=== PATIENT | male | born 1950 | race Caucasian/White ===

== ENCOUNTER 2017-09-04 10:15 | Inpatient (IN) | payer OTHER, MEDICARE ==
--- NOTE | 2017-09-04 10:35 | ER Document Report ---
ED Medical Screen (RME) - General Chief Complaint: Nausea/Vomiting/Diarrhea Stated Complaint: VOMITING Time Seen by Provider: 09/04/17 10:28 Notes: RAPID MEDICAL EVALUATION DISCLOSURE I have seen this patient as part of a Rapid Medical Evaluation and, if applicable, placed any initially appropriate orders. The patient will be seen and fully evaluated, including a full history and physical exam, by a provider ( in Main ED or Fast Track) when a room becomes available. 66-year-old male here with complaints of nausea vomiting diarrhea ongoing for days now. He is also had some epigastric abdominal pain. He has tried Tylenol for the pain with minimal relief. He does not know of anything that makes the pain worse other than vomiting. He denies any known sick contacts. He was given 4 mg Zofran by EMS. There was talk of altered mental status so he was sent here by the ID clinic. EXAM Mild epigastric TTP AO 4 TRAVEL OUTSIDE OF THE [place] IN LAST 30 DAYS: No - Related Data Allergies/Adverse Reactions: No Known Allergies Allergy (Unverified 09/04/17 10:17) Physical Exam - Vital signs Vitals: Temp Pulse Resp BP Pulse Ox 98.0 F 86 16 158/97 H 95 09/04/17 10:24 09/04/17 10:24 09/04/17 10:24 09/04/17 10:24 09/04/17 10:24 Course - Vital Signs Vital signs: Temp Pulse Resp BP Pulse Ox 98.0 F 86 16 158/97 H 95 09/04/17 10:24 09/04/17 10:24 09/04/17 10:24 09/04/17 10:24 09/04/17 10:24
[2017-09-04 10:42] LABS: ABSOLUTE EOSINOPHILS # (AUTO) 0.1 10^3/uL (0.0-0.6); ABSOLUTE LYMPHOCYTES (AUTO) 0.5 10^3/uL (0.5-4.7); ABSOLUTE MONOCYTES (AUTO) 0.3 10^3/uL (0.1-1.4); ABSOLUTE NEUT (AUTO) 2.1 10^3/uL (1.7-8.2); BASOPHILS % (AUTO) 0.6 % (0-2); HEMATOCRIT 43.3 % (37.9-51.0); HEMOGLOBIN 14.8 g/dL (13.5-17.0); LYMPHOCYTES % (AUTO) 16.3 % (13-45); MEAN CORPUSCULAR HEMOGLOBIN 32.6 pg (27.0-33.4); MEAN CORPUSCULAR HGB CONC 34.2 g/dL (32.0-36.0); MEAN CORPUSCULAR VOLUME 95 fl (80-97); MONOCYTES % (AUTO) 8.8 % (3-13); PLATELET COUNT 312 10^3/uL (150-450); RED BLOOD COUNT 4.54 10^6/uL (4.35-5.55); RED CELL DISTRIBUTION WIDTH 12.9 % (11.5-14.0); SEGMENTED NEUTROPHILS % (AUTO) 72.3 % (42-78); TOTAL CELLS COUNTED % (AUTO) 100 %; WHITE BLOOD COUNT 2.9 10^3/uL (4.0-10.5)
[2017-09-04 10:55] LABS: ALANINE AMINOTRANSFERASE 30 U/L (21-72); ALKALINE PHOSPHATASE 95 U/L (38-126); ASPARTATE AMINO TRANSFERASE 32 U/L (17-59); BILIRUBIN,DIRECT 0.4 mg/dL (0.0-0.4); BILIRUBIN,TOTAL 0.7 mg/dL (0.2-1.3); BLOOD UREA NITROGEN 13 mg/dL (7-20); CALCIUM 8.8 mg/dL (8.4-10.2); CARBON DIOXIDE 26 mmol/L (22-30); CHLORIDE 80 mmol/L (98-107); GLUCOSE 94 mg/dL (75-110); LIPASE 146.8 U/L (23-300); POTASSIUM 4.1 mmol/L (3.6-5.0); TOTAL PROTEIN 6.6 g/dL (6.3-8.2)
[2017-09-04 10:58] LABS: ANION GAP 12 (5-19)
[2017-09-04 11:05] LABS: SODIUM 117.8 mmol/L (137-145)
[2017-09-04] MEDS ORDERED: NORMAL SALINE 500 ML IV ONE (11:28)
[2017-09-04] MEDS ORDERED: NORMAL SALINE 1000 ML 1,000 ML IV ONE (11:30)
[2017-09-04] MEDS ORDERED: ONDANSETRON HCL INJ/PF 4 MG/2 ML SDV IV ONE (11:41)
[2017-09-04] MEDS ORDERED: MORPHINE SULFATE 10 MG/ML INJ IV ONE (11:41)
[2017-09-04] MEDS ORDERED: METOCLOPRAMIDE HCL INJ/PF 10 MG/2 ML SDV IV ONE (11:43)
--- NOTE | 2017-09-04 11:48 | ER Document Report ---
ED General - General Chief Complaint: Nausea/Vomiting/Diarrhea Stated Complaint: VOMITING Time Seen by Provider: 09/04/17 10:28 Mode of Arrival: Ambulatory Information source: Patient, Relative, Emergency Med Personnel Notes: 66-year-old male with hypertension, COPD, aspergillosis, gastric ulcers presents via EMS with complaint of nausea, vomiting, abdominal pain. is at the bedside and helps provide the history because the patient does not have his hearing aids in. states that patient began coughing 1 week prior to arrival. She states that it was a productive cough, they were going to be seen by his primary care physician but the cough improved. She states that patient has been experiencing subjective fevers for the last 3 days and began having nausea, vomiting last night. Both patient and reports that the patient vomited "all night long". Patient had 2 episodes of diarrhea this morning. Patient's abdominal pain is located in epigastric region described as a stabbing pain. Patient admits to abdominal distention as well. He denies any bloody stools. he states he has black stools chronically secondary to iron supplementation. Patient denies sick contacts. Patient is on amoxicillin chronically for his aspergillosis per the . states that Patient's gastric ulcers were "bleeding" and required "ablation" last year. TRAVEL OUTSIDE OF THE [place] IN LAST 30 DAYS: No - HPI Onset: Yesterday Onset/Duration: Gradual, Constant, Worse Quality of pain: Stabbing Severity: Moderate Pain Level: 3 Associated symptoms: Chills, Productive cough, Diarrhea, Fever, Nausea, Vomiting , Slow to respond, Sweating, Weakness Exacerbated by: Denies Relieved by: Denies Similar symptoms previously: No Recently seen / treated by doctor: Yes - Related Data Allergies/Adverse Reactions: No Known Allergies Allergy (Unverified 09/04/17 10:17) Home Medications: Hydroxyzine 50mg at bedtime PRN. Trazodone 50mg 1 tab PRN for depression. Gabapentin 400mg TID PO. Melatonin 3mg tap TID PO. Ferrous Sulfate 325mg PO Daily. Budesonide 80mg 2 puffs BID PRN. Diltiazem PO Daily. Fluoxetine HCl 20mg 3 capsults Daily. Folic Acid 1mg tab PO daily. HCTZ 1 tab daily. Thiamine HCl 100mg daily PO. Albuterol 90mcg 1 puff daily. Pantoprazole 20mg 1 tab BID Daily. Montelukast NA 10 mg 1 tab PO Daily. Calcium 1 tab BID Daily Past Medical History - General Information source: Patient, Parent, [facility] Records - Social History Smoking Status: Never Smoker Chew tobacco use (# tins/day): No Frequency of alcohol use: None Drug Abuse: None Lives with: Spouse/Significant other Family History: Reviewed & Not Pertinent Patient has suicidal ideation: No Patient has homicidal ideation: No - Past Medical History Cardiac Medical History: Reports: Hx Hypertension Pulmonary Medical History: Reports: Hx Asthma, Hx COPD Renal/ Medical History: Denies: Hx Peritoneal Dialysis Psychiatric Medical History: Reports: Hx Depression Past Surgical History: Reports: Hx Orthopedic Surgery - Hip Review of Systems - Review of Systems Constitutional: Fever, Weakness EENT: denies: Blurred vision Cardiovascular: denies: Chest pain Respiratory: Cough, Short of breath Gastrointestinal: Abdominal pain, Diarrhea, Nausea. denies: Constipation, Blood streaked bowels, Black stools Genitourinary: denies: Dysuria Male Genitourinary: No symptoms reported Musculoskeletal: No symptoms reported Skin: No symptoms reported Hematologic/Lymphatic: No symptoms reported Neurological/Psychological: Confusion Physical Exam - Vital signs Vitals: Temp Pulse Resp BP Pulse Ox 98.0 F 86 16 158/97 H 95 09/04/17 10:24 09/04/17 10:24 09/04/17 10:24 09/04/17 10:24 09/04/17 10:24 Interpretation: Normal, Hypertensive. No: Febrile - Notes Notes: PHYSICAL EXAMINATION: GENERAL: ill-appearing, diaphoretic, in moderate distress. HEAD: Atraumatic, normocephalic. EYES: Pupils equal round and reactive to light, extraocular movements intact, sclera anicteric, conjunctiva are normal. ENT: Nares patent, oropharynx clear without exudates. Moist mucous membranes. NECK: Normal range of motion, supple without lymphadenopathy LUNGS: Breath sounds clear to auscultation bilaterally and equal. No wheezes rales or rhonchi. HEART: Regular rate and rhythm without murmurs ABDOMEN: Abdominal distention. Tender to palpation in the epigastric region. No guarding or rebound. Musculoskeletal: Normal range of motion, no pitting or edema. No cyanosis. NEUROLOGICAL: Tremulous, cranial nerves grossly intact. Normal speech, normal gait. Normal sensory, motor exams PSYCH: Normal mood, normal affect. Alert and oriented 3 SKIN: Warm, Dry, normal turgor, no rashes or lesions noted. Course - Re-evaluation Re-evalutation: Laboratory 09/04/17 09/04/17 09/04/17 09:55 09:55 09:55 WBC 2.9 L RBC 4.54 Hgb 14.8 Hct 43.3 MCV 95 MCH 32.6 MCHC 34.2 RDW 12.9 Plt Count 312 Seg Neutrophils % 72.3 Lymphocytes % 16.3 Monocytes % 8.8 Eosinophils % 2.0 Basophils % 0.6 Absolute Neutrophils 2.1 Absolute Lymphocytes 0.5 Absolute Monocytes 0.3 Absolute Eosinophils 0.1 Absolute Basophils 0.0 Sodium 117.8 L* Potassium 4.1 Chloride 80 L Carbon Dioxide 26 Anion Gap 12 BUN 13 Creatinine 0.55 Est GFR ( Amer) > 60 Est GFR (Non-Af Amer) > 60 Glucose 94 Lactic Acid Calcium 8.8 Total Bilirubin 0.7 Direct Bilirubin 0.4 Neonat Total Bilirubin Not Reportable Neonat Direct Bilirubin Not Reportable Neonat Indirect Bili Not Reportable AST 32 ALT 30 Alkaline Phosphatase 95 Creatine Kinase 150 CK-MB (CK-2) Troponin I Total Protein 6.6 Albumin 4.0 Lipase 146.8 Urine Color Urine Appearance Urine pH Ur Specific [place] Urine Protein Urine Glucose (UA) Urine Ketones Urine Blood Urine Nitrite Urine Bilirubin Urine Urobilinogen Ur Leukocyte Esterase Urine WBC (Auto) Urine RBC (Auto) Urine Mucus (Auto) Urine Ascorbic Acid Stool Occult Blood 09/04/17 09/04/17 09/04/17 09:55 11:42 13:17 WBC RBC Hgb Hct MCV MCH MCHC RDW Plt Count Seg Neutrophils % Lymphocytes % Monocytes % Eosinophils % Basophils % Absolute Neutrophils Absolute Lymphocytes Absolute Monocytes Absolute Eosinophils Absolute Basophils Sodium Potassium Chloride Carbon Dioxide Anion Gap BUN Creatinine Est GFR ( Amer) Est GFR (Non-Af Amer) Glucose Lactic Acid 0.9 Calcium Total Bilirubin Direct Bilirubin Neonat Total Bilirubin Neonat Direct Bilirubin Neonat Indirect Bili AST ALT Alkaline Phosphatase Creatine Kinase CK-MB (CK-2) 3.03 Troponin I < 0.012 Total Protein Albumin Lipase Urine Color YELLOW Urine Appearance CLEAR Urine pH 5.0 Ur Specific [place] 1.036 Urine Protein 30 H Urine Glucose (UA) NEGATIVE Urine Ketones 20 H Urine Blood NEGATIVE Urine Nitrite NEGATIVE Urine Bilirubin NEGATIVE Urine Urobilinogen NEGATIVE Ur Leukocyte Esterase NEGATIVE Urine WBC (Auto) 0 Urine RBC (Auto) 1 Urine Mucus (Auto) OCC Urine Ascorbic Acid NEGATIVE Stool Occult Blood 09/04/17 14:20 WBC RBC Hgb Hct MCV MCH MCHC RDW Plt Count Seg Neutrophils % Lymphocytes % Monocytes % Eosinophils % Basophils % Absolute Neutrophils Absolute Lymphocytes Absolute Monocytes Absolute Eosinophils Absolute Basophils Sodium Potassium Chloride Carbon Dioxide Anion Gap BUN Creatinine Est GFR ( Amer) Est GFR (Non-Af Amer) Glucose Lactic Acid Calcium Total Bilirubin Direct Bilirubin Neonat Total Bilirubin Neonat Direct Bilirubin Neonat Indirect Bili AST ALT Alkaline Phosphatase Creatine Kinase CK-MB (CK-2) Troponin I Total Protein Albumin Lipase Urine Color Urine Appearance Urine pH Ur Specific [place] Urine Protein Urine Glucose (UA) Urine Ketones Urine Blood Urine Nitrite Urine Bilirubin Urine Urobilinogen Ur Leukocyte Esterase Urine WBC (Auto) Urine RBC (Auto) Urine Mucus (Auto) Urine Ascorbic Acid Stool Occult Blood NEGATIVE Chest X-Ray 09/04/17 12:53 IMPRESSION: No acute infiltrates Abdomen/Pelvis CTA 09/04/17 13:47 IMPRESSION: Minimal patchy airspace disease bilaterally, question pulmonary edema. Gastroesophageal reflux of oral contrast of the cervical esophagus No CTA evidence of thoracic or abdominal aortic dissection or aneurysm. No embolized to the proximal pulmonary arteries. Chest/Abdomen CTA 09/04/17 13:47 IMPRESSION: Minimal patchy airspace disease bilaterally, question pulmonary edema. Gastroesophageal reflux of oral contrast of the cervical esophagus No CTA evidence of thoracic or abdominal aortic dissection or aneurysm. No embolized to the proximal pulmonary arteries. 09/04/17 15:44 66-year-old male with hypertension, COPD, aspergillosis, gastric ulcers presents via EMS with complaint of nausea, vomiting, abdominal pain. is at the bedside and helps provide the history because the patient does not have his hearing aids in. states that patient began coughing 1 week prior to arrival. She states that it was a productive cough, they were going to be seen by his primary care physician but the cough improved. She states that patient has been experiencing subjective fevers for the last 3 days and began having nausea, vomiting last night. Both patient and reports that the patient vomited "all night long". Patient had 2 episodes of diarrhea this morning. Patient's abdominal pain is located in epigastric region described as a stabbing pain. Patient admits to abdominal distention as well. He denies any bloody stools. reports black stools chronically secondary to iron supplements. Upon arrival vitals are reviewed and patient is afebrile, hypertensive but not hypoxic. Patient appears ill but not toxic. He is in mild distress secondary to pain. Patient received Dilaudid, Zofran. During his ED course patient began to complain of worsening shortness of breath. At that time breathing treatments were administered. O2 sats remeined stable. Patient was never tachycardic. On reevaluation patient is sitting up, diaphoretic and complaining of worsening abdominal pain. At that time CTA of the chest abdomen and pelvis were obtained to assess for aortic dissection. No aortic dissection was seen. Significant laboratory findings include a sodium of 117. Patient has a normal lactate, normal cardiac enzymes and urinalysis. Stool negative for blood. After second dose of Dilaudid patient is resting more comfortably. Patient is receiving normal saline at a rate of 150. Repeat BMP pending. Patient will be admitted to the hospitalist. 09/04/17 15:45 09/04/17 21:50 - Vital Signs Vital signs: Temp Pulse Resp BP Pulse Ox 98.0 F 83 16 144/67 H 98 09/04/17 20:17 09/04/17 20:17 09/04/17 20:17 09/04/17 20:17 09/04/17 20:17 - Laboratory Result Diagrams: 09/04/17 09:55 09/04/17 13:40 Laboratory results interpreted by me: 09/04/17 09/04/17 09/04/17 09:55 09:55 13:17 WBC 2.9 L Sodium 117.8 L* Chloride 80 L Urine Protein 30 H Urine Ketones 20 H 09/04/17 13:40 WBC Sodium 119.0 L* Chloride 83 L Urine Protein Urine Ketones - Diagnostic Test Radiology reviewed: Image reviewed, Reports reviewed - EKG Interpretation by Ri EKG shows normal: Sinus rhythm [place]/QRS: [facility] Critical Care Note - Critical Care Note Total time excluding time spent on procedures (mins): 35 - minutes of critical care time spent in direct contact evaluating and reevaluating the patient, treating symptoms, reviewing labs and studies and speaking with family and consultants excluding any procedures Discharge - Discharge Clinical Impression: Hyponatremia, Confusion Abdominal pain Qualifiers: Abdominal location: epigastric Qualified Code(s): R10.13 - Epigastric pain Nausea & vomiting Qualifiers: Vomiting type: unspecified Vomiting Intractability: non-intractable Qualified Code(s): R11.2 - Nausea with vomiting, unspecified Condition: Good Disposition: ADMITTED INPATIENT Admitting Provider: Hospitalist Unit Admitted: Telemetry
[2017-09-04] MEDS ORDERED: HYDROMORPHONE HCL INJ/PF 2 MG/ML AMPULE IV ONE ×2 (11:55→14:23)
[2017-09-04] MEDS ORDERED: IPRATROPIUM/ALBUTEROL 0.5-2.5 MG/3 ML AMPUL NEB ONE (12:17)
[2017-09-04 12:21] LABS: CREATINE KINASE MB 3.03 ng/mL (<4.55)
[2017-09-04 12:23] LABS: TROPONIN I < 0.012 ng/mL
--- NOTE | 2017-09-04 12:47 | EKG REPORT ---
SEVERITY:- ABNORMAL ECG - SINUS RHYTHM PROBABLE LEFT ATRIAL ABNORMALITY LEFT ANTERIOR FASCICULAR BLOCK CONSIDER RIGHT VENTRICULAR HYPERTROPHY NONSPECIFIC T ABNORMALITIES, LATERAL LEADS PROLONGED QT INTERVAL : Confirmed by: Odin Monreal MD 04-Sep-2017 12:47:14
--- NOTE | 2017-09-04 13:28 | RADIOLOGY REPORT (SQ) ---
EXAM DESCRIPTION: CHEST SINGLE VIEW COMPLETED DATE/TIME: 09/04/2017 1:16 pm REASON FOR STUDY: sob COMPARISON: None. EXAM PARAMETERS: NUMBER OF VIEWS: One view. TECHNIQUE: Single frontal radiographic view of the chest acquired. RADIATION DOSE: NA LIMITATIONS: None. FINDINGS: LUNGS AND PLEURA: No opacities, masses or pneumothorax. No pleural effusion. MEDIASTINUM AND HILAR STRUCTURES: No masses. Contour normal. HEART AND VASCULAR STRUCTURES: Heart normal in size. Normal vasculature. BONES: Osteoporotic. Old right humeral head prosthesis. Old left healed lateral rib fractures. Low er thoracic/ upper lumbar stabilization rods HARDWARE: Orthopedic hardware as above OTHER: No other significant finding. IMPRESSION: No acute infiltrates TECHNICAL DOCUMENTATION: JOB ID: [id number] [employer]- All Rights Reserved Reading location - IP/workstation name: [email or web address]
[2017-09-04] MEDS ORDERED: HYDROMORPHONE HCL INJ/PF 2 MG/ML AMPULE ONE (13:43)
[2017-09-04 14:04] LABS: APPEARANCE,URINE CLEAR; BILIRUBIN,URINE NEGATIVE (NEGATIVE); COLOR,URINE YELLOW; GLUCOSE, URINE NEGATIVE (NEGATIVE); KETONES,URINE 20 mg/dL (NEGATIVE); LEUKOCYTE ESTERASE,URINE NEGATIVE (NEGATIVE); NITRITE,URINE NEGATIVE (NEGATIVE); PROTEIN,URINE 30 mg/dL (NEGATIVE); URINE SPECIFIC GRAVITY 1.036; UROBILINOGEN,URINE NEGATIVE mg/dL (<2.0)
--- NOTE | 2017-09-04 14:39 | RADIOLOGY REPORT (SQ) ---
EXAM DESCRIPTION: CTA CHEST; CTA ABDOMEN/PELVIS W WO COMPLETED DATE/TIME: 09/04/2017 2:04 pm REASON FOR STUDY: sob COMPARISON: None. CONTRAST TYPE AND DOSE: contrast/concentration: Isovue 370.00 mg/ml; Total Contrast Delivered: 75.0 ml; Total Saline Delivered: 60.0 ml RENAL FUNCTION: Creatinine 0.5 by TECHNIQUE: CT angio of the chest performed using helical scanning technique with dynamic intravenous contrast injection. Images reviewed with lung, soft tissue and bone windows. Reconstructed coronal and sagittal MPR images through the thoracic aorta and pulmonary arteries reviewed. All images store d on PACS. CT angio of the abdomen and pelvis performed with intravenous and with oral contrastusing helical sca nning technique with dynamic intravenous contrast injection. Images reviewed with lung, soft tissue and bone windows. Reconstructed coronal and sagittal MPR images reviewed. Delayed images for evalua tion of the urinary system also acquired and evaluated. All images stored on PACS. All CT scanners at this facility use dose modulation, iterative reconstruction, and/or weight based d osing when appropriate to reduce radiation dose to as low as reasonably achievable (ALARA). [facility]: Dose Right [facility]: CareDose [facility]: Dose Right [facility]: Teradose 4D [facility]: Smart redealize RADIATION DOSE: CT Rad equipment meets quality standard of care and radiation dose reduction techniq ues were employed. CTDIvol: 13.3 - 19.8 mGy. DLP: 1865 mGy-cm. . LIMITATIONS: None. FINDINGS: CHEST: LUNGS AND PLEURA: There is minimal patchy ground-glass opacity in the right upper lobe left upper lob e and superior segment left lower lobe. This is abnormal but nonspecific and could represent mild pu lmonary edema. No pleural effusions. No pneumothorax. Minimal bandlike scarring at the right poste rior lung base. HILAR AND MEDIASTINAL STRUCTURES: No identified masses or abnormal nodes. HEART AND VASCULAR STRUCTURES: No thoracic aortic aneurysm or dissection. No central pulmonary embol i. No pericardial effusion. Minimal aortic valve calcification. HARDWARE: None. THYROID AND OTHER SOFT TISSUES: No masses. No adenopathy. 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 T7 chronic appearing 50% compression deformity. OTHER: There is reflux of oral contrast from the stomach up through the cervical esophagus. ABDOMEN AND PELVIS: LIVER: Normal size. No masses. No dilated ducts. SPLEEN: Normal size. No focal lesions. PANCREAS: No masses. No significant calcifications. No adjacent inflammation or peripancreatic fluid collections. Pancreatic duct not dilated. GALLBLADDER: No identified stones by CT criteria. No inflammatory changes to suggest cholecystitis. ADRENAL GLANDS: No significant masses or asymmetry. RIGHT KIDNEY AND URETER: No solid masses. No significant calcification. No hydronephrosis or hydroure ter. LEFT KIDNEY AND URETER: No solid masses. 2 cm right upper pole renal cortical cyst. No significant calcification. No hydronephrosis or hydroureter. AORTA AND VESSELS: No aneurysm. No dissection. Renal arteries, SMA, celiac without stenosis. RETROPERITONEUM: No retroperitoneal adenopathy, hemorrhage or masses. BOWEL AND PERITONEAL CAVITY: Patient drank oral contrast. No CT evidence of bowel obstruction. Ther e is gastroesophageal reflux to the cervical esophagus. No masses or inflammatory changes. No free f luid or peritoneal masses. APPENDIX: Normal. ABDOMINAL WALL: No masses. No hernias. PELVIS: No mass or free fluid. Normal bladder. BONES: Old right hip replacement. Jurado rods in the spine from T9 through the sacrum. OTHER: No other significant finding. IMPRESSION: Minimal patchy airspace disease bilaterally, question pulmonary edema. Gastroesophageal reflux of oral contrast of the cervical esophagus No CTA evidence of thoracic or abdominal aortic dissection or aneurysm. No embolized to the proximal pulmonary arteries. TECHNICAL DOCUMENTATION: JOB ID: [id number] Quality ID # [id number]: Final reports with documentation of one or more dose reduction techniques (e.g., Au tomated exposure control, adjustment of the mA and/or kV according to patient size, use of iterative reconstruction technique) 2010 [employer]- All Rights Reserved Reading location - IP/workstation name: [email or web address]
--- NOTE | 2017-09-04 14:39 | RADIOLOGY REPORT (SQ) ---
EXAM DESCRIPTION: CTA CHEST; CTA ABDOMEN/PELVIS W WO COMPLETED DATE/TIME: 09/04/2017 2:04 pm REASON FOR STUDY: sob COMPARISON: None. CONTRAST TYPE AND DOSE: contrast/concentration: Isovue 370.00 mg/ml; Total Contrast Delivered: 75.0 ml; Total Saline Delivered: 60.0 ml RENAL FUNCTION: Creatinine 0.5 by TECHNIQUE: CT angio of the chest performed using helical scanning technique with dynamic intravenous contrast injection. Images reviewed with lung, soft tissue and bone windows. Reconstructed coronal and sagittal MPR images through the thoracic aorta and pulmonary arteries reviewed. All images store d on PACS. CT angio of the abdomen and pelvis performed with intravenous and with oral contrastusing helical sca nning technique with dynamic intravenous contrast injection. Images reviewed with lung, soft tissue and bone windows. Reconstructed coronal and sagittal MPR images reviewed. Delayed images for evalua tion of the urinary system also acquired and evaluated. All images stored on PACS. All CT scanners at this facility use dose modulation, iterative reconstruction, and/or weight based d osing when appropriate to reduce radiation dose to as low as reasonably achievable (ALARA). [facility]: Dose Right [facility]: CareDose [facility]: Dose Right [facility]: Teradose 4D [facility]: Smart E[place] RADIATION DOSE: CT Rad equipment meets quality standard of care and radiation dose reduction techniq ues were employed. CTDIvol: 13.3 - 19.8 mGy. DLP: 1865 mGy-cm. . LIMITATIONS: None. FINDINGS: CHEST: LUNGS AND PLEURA: There is minimal patchy ground-glass opacity in the right upper lobe left upper lob e and superior segment left lower lobe. This is abnormal but nonspecific and could represent mild pu lmonary edema. No pleural effusions. No pneumothorax. Minimal bandlike scarring at the right poste rior lung base. HILAR AND MEDIASTINAL STRUCTURES: No identified masses or abnormal nodes. HEART AND VASCULAR STRUCTURES: No thoracic aortic aneurysm or dissection. No central pulmonary embol i. No pericardial effusion. Minimal aortic valve calcification. HARDWARE: None. THYROID AND OTHER SOFT TISSUES: No masses. No adenopathy. 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 T7 chronic appearing 50% compression deformity. OTHER: There is reflux of oral contrast from the stomach up through the cervical esophagus. ABDOMEN AND PELVIS: LIVER: Normal size. No masses. No dilated ducts. SPLEEN: Normal size. No focal lesions. PANCREAS: No masses. No significant calcifications. No adjacent inflammation or peripancreatic fluid collections. Pancreatic duct not dilated. GALLBLADDER: No identified stones by CT criteria. No inflammatory changes to suggest cholecystitis. ADRENAL GLANDS: No significant masses or asymmetry. RIGHT KIDNEY AND URETER: No solid masses. No significant calcification. No hydronephrosis or hydroure ter. LEFT KIDNEY AND URETER: No solid masses. 2 cm right upper pole renal cortical cyst. No significant calcification. No hydronephrosis or hydroureter. AORTA AND VESSELS: No aneurysm. No dissection. Renal arteries, SMA, celiac without stenosis. RETROPERITONEUM: No retroperitoneal adenopathy, hemorrhage or masses. BOWEL AND PERITONEAL CAVITY: Patient drank oral contrast. No CT evidence of bowel obstruction. Ther e is gastroesophageal reflux to the cervical esophagus. No masses or inflammatory changes. No free f luid or peritoneal masses. APPENDIX: Normal. ABDOMINAL WALL: No masses. No hernias. PELVIS: No mass or free fluid. Normal bladder. BONES: Old right hip replacement. Jurado rods in the spine from T9 through the sacrum. OTHER: No other significant finding. IMPRESSION: Minimal patchy airspace disease bilaterally, question pulmonary edema. Gastroesophageal reflux of oral contrast of the cervical esophagus No CTA evidence of thoracic or abdominal aortic dissection or aneurysm. No embolized to the proximal pulmonary arteries. TECHNICAL DOCUMENTATION: JOB ID: [id number] Quality ID # [id number]: Final reports with documentation of one or more dose reduction techniques (e.g., Au tomated exposure control, adjustment of the mA and/or kV according to patient size, use of iterative reconstruction technique) 2010 [employer]- All Rights Reserved Reading location - IP/workstation name: [facility]
[2017-09-04] MEDS ORDERED: PANTOPRAZOLE SODIUM 40 MG VIAL IV ONE (15:29)
[2017-09-04 16:21] LABS: BLOOD UREA NITROGEN 13 mg/dL (7-20); CALCIUM 8.7 mg/dL (8.4-10.2); CARBON DIOXIDE 23 mmol/L (22-30); CHLORIDE 83 mmol/L (98-107); GLUCOSE 98 mg/dL (75-110); POTASSIUM 3.9 mmol/L (3.6-5.0)
[2017-09-04 16:23] LABS: ANION GAP 13 (5-19)
[2017-09-04] MEDS ORDERED: ONDANSETRON HCL INJ/PF 4 MG/2 ML SDV IV PRN (16:34)
[2017-09-04] MEDS ORDERED: ACETAMINOPHEN 325 MG TABLET PO PRN (16:34)
--- NOTE | 2017-09-04 18:02 | EKG REPORT ---
SEVERITY:- ABNORMAL ECG - SINUS RHYTHM LEFT ANTERIOR FASCICULAR BLOCK CONSIDER RIGHT VENTRICULAR HYPERTROPHY CONSIDER ANTERIOR INFARCT BORDERLINE T ABNORMALITIES, INFERIOR LEADS : Confirmed by: dOin Monreal MD 04-Sep-2017 18:01:58
[2017-09-04] MEDS: NORMAL SALINE 1000 ML 1,000 ML IV PRN (18:12)
[2017-09-04] MEDS: OXYCODONE-ACETAMINOPHEN 5-325 MG TABLET PO PRN (18:17)
[2017-09-04] MEDS: IPRATROPIUM/ALBUTEROL 0.5-2.5 MG/3 ML AMPUL NEB PRN (19:27)
--- NOTE | 2017-09-04 19:36 | PDOC H&P ---
History of Present Illness Admission Date/PCP: 09/04/17 15:55 History of Present Illness: CECE PALMA is a 66 year old male with hypertension, COPD, aspergillosis, gastric ulcers presents via EMS with complaint of nausea, vomiting, abdominal pain. is at the bedside and helps provide the history because the patient does not have his hearing aids in. states that patient began coughing 1 week prior to arrival. She states that it was a productive cough, they were going to be seen by his primary care physician but the cough improved. She states that patient has been experiencing subjective fevers for the last 3 days and began having nausea , vomiting and last night. Both patient and reports that the patient vomited "all night long". Patient had 2 episodes of diarrhea this morning. Patient's abdominal pain is located in epigastric region described as a stabbing pain. Patient admits to abdominal distention as well. He denies any black or bloody stools. Patient denies sick contacts. Patient is on amoxicillin chronically for his aspergillosis per the . He does take iron supplements for anemia. Past Medical History Cardiac Medical History: Reports: Hypertension Pulmonary Medical History: Reports: Asthma, Chronic Obstructive Pulmonary Disease (COPD) Psychiatric Medical History: Reports: Depression Past Surgical History Past Surgical History: Reports: Orthopedic Surgery - Hip Social History Information Source: Patient Lives with: Family, Spouse/Significant other Smoking Status: Former Smoker Frequency of Alcohol Use: None Hx Recreational Drug Use: No Drugs: None Hx Prescription Drug Abuse: No - Advance Directive Resuscitation Status: Full Code Family History Family History: Reviewed & Not Pertinent Parental Family History Reviewed: No Children Family History Reviewed: Yes Sibling(s) Family History Reviewed.: Unknown Medication/Allergy Home Medications: Gabapentin [Neurontin] 1,200 mg PO Q8 09/04/17 Montelukast Sodium [Singulair 10 mg Tablet] 10 mg PO QHS 09/04/17 Pirbuterol Acetate [Maxair Autohaler] 14 gm IH 09/04/17 Tiotropium [place] [Spiriva Respimat] 4 gm IH 09/04/17 Allergies/Adverse Reactions: No Known Allergies Allergy (Unverified 09/04/17 10:17) Review of Systems All systems: reviewed and no additional remarkable complaints except as stated Physical Exam Vital Signs: Temp Pulse Resp BP Pulse Ox 97.8 F 84 18 149/89 H 97 09/04/17 18:54 09/04/17 19:25 09/04/17 19:25 09/04/17 18:54 09/04/17 19:25 Intake & Output 09/03/17 09/04/17 09/05/17 06:59 06:59 06:59 Intake Total 150 Balance 150 General appearance: PRESENT: no acute distress, well-nourished Head exam: PRESENT: atraumatic, normocephalic Eye exam: PRESENT: conjunctiva pink, PERRLA. ABSENT: scleral icterus Ear exam: PRESENT: other - Hard of hearing Mouth exam: PRESENT: tongue midline Neck exam: ABSENT: carotid bruit, JVD, lymphadenopathy, thyromegaly Respiratory exam: PRESENT: clear to auscultation becky. ABSENT: rales, rhonchi, wheezes Cardiovascular exam: PRESENT: RRR. ABSENT: diastolic murmur, rubs, systolic murmur Pulses: PRESENT: normal dorsalis pedis pul Vascular exam: PRESENT: normal capillary refill GI/Abdominal exam: PRESENT: firm, normal bowel sounds. ABSENT: distended, guarding, mass, organolmegaly, rebound, tenderness Rectal exam: PRESENT: deferred Extremities exam: PRESENT: full ROM. ABSENT: calf tenderness, clubbing, pedal edema Neurological exam: PRESENT: alert, awake, oriented to person, oriented to place , oriented to time, oriented to situation, CN II-XII grossly intact. ABSENT: motor sensory deficit Psychiatric exam: PRESENT: appropriate affect, normal mood. ABSENT: homicidal ideation, suicidal ideation Skin exam: PRESENT: dry, intact, warm. ABSENT: cyanosis, rash Results Laboratory Results: Laboratory 09/04/17 09/04/17 09/04/17 09:55 09:55 09:55 WBC 2.9 L RBC 4.54 Hgb 14.8 Hct 43.3 MCV 95 MCH 32.6 MCHC 34.2 RDW 12.9 Plt Count 312 Seg Neutrophils % 72.3 Lymphocytes % 16.3 Monocytes % 8.8 Eosinophils % 2.0 Basophils % 0.6 Absolute Neutrophils 2.1 Absolute Lymphocytes 0.5 Absolute Monocytes 0.3 Absolute Eosinophils 0.1 Absolute Basophils 0.0 Sodium 117.8 L* Potassium 4.1 Chloride 80 L Carbon Dioxide 26 Anion Gap 12 BUN 13 Creatinine 0.55 Est GFR ( Amer) > 60 Est GFR (Non-Af Amer) > 60 Glucose 94 Lactic Acid Calcium 8.8 Total Bilirubin 0.7 Direct Bilirubin 0.4 Neonat Total Bilirubin Not Reportable Neonat Direct Bilirubin Not Reportable Neonat Indirect Bili Not Reportable AST 32 ALT 30 Alkaline Phosphatase 95 Creatine Kinase 150 CK-MB (CK-2) Troponin I Total Protein 6.6 Albumin 4.0 Lipase 146.8 Urine Color Urine Appearance Urine pH Ur Specific [place] Urine Protein Urine Glucose (UA) Urine Ketones Urine Blood Urine Nitrite Urine Bilirubin Urine Urobilinogen Ur Leukocyte Esterase Urine WBC (Auto) Urine RBC (Auto) Urine Mucus (Auto) Urine Ascorbic Acid Stool Occult Blood 09/04/17 09/04/17 09/04/17 09:55 11:42 13:17 WBC RBC Hgb Hct MCV MCH MCHC RDW Plt Count Seg Neutrophils % Lymphocytes % Monocytes % Eosinophils % Basophils % Absolute Neutrophils Absolute Lymphocytes Absolute Monocytes Absolute Eosinophils Absolute Basophils Sodium Potassium Chloride Carbon Dioxide Anion Gap BUN Creatinine Est GFR ( Amer) Est GFR (Non-Af Amer) Glucose Lactic Acid 0.9 Calcium Total Bilirubin Direct Bilirubin Neonat Total Bilirubin Neonat Direct Bilirubin Neonat Indirect Bili AST ALT Alkaline Phosphatase Creatine Kinase CK-MB (CK-2) 3.03 Troponin I < 0.012 Total Protein Albumin Lipase Urine Color YELLOW Urine Appearance CLEAR Urine pH 5.0 Ur Specific Ophiem 1.036 Urine Protein 30 H Urine Glucose (UA) NEGATIVE Urine Ketones 20 H Urine Blood NEGATIVE Urine Nitrite NEGATIVE Urine Bilirubin NEGATIVE Urine Urobilinogen NEGATIVE Ur Leukocyte Esterase NEGATIVE Urine WBC (Auto) 0 Urine RBC (Auto) 1 Urine Mucus (Auto) OCC Urine Ascorbic Acid NEGATIVE Stool Occult Blood 09/04/17 09/04/17 13:40 14:20 WBC RBC Hgb Hct MCV MCH MCHC RDW Plt Count Seg Neutrophils % Lymphocytes % Monocytes % Eosinophils % Basophils % Absolute Neutrophils Absolute Lymphocytes Absolute Monocytes Absolute Eosinophils Absolute Basophils Sodium 119.0 L* Potassium 3.9 Chloride 83 L Carbon Dioxide 23 Anion Gap 13 BUN 13 Creatinine 0.52 Est GFR ( Amer) > 60 Est GFR (Non-Af Amer) > 60 Glucose 98 Lactic Acid Calcium 8.7 Total Bilirubin Direct Bilirubin Neonat Total Bilirubin Neonat Direct Bilirubin Neonat Indirect Bili AST ALT Alkaline Phosphatase Creatine Kinase CK-MB (CK-2) Troponin I Total Protein Albumin Lipase Urine Color Urine Appearance Urine pH Ur Specific [place] Urine Protein Urine Glucose (UA) Urine Ketones Urine Blood Urine Nitrite Urine Bilirubin Urine Urobilinogen Ur Leukocyte Esterase Urine WBC (Auto) Urine RBC (Auto) Urine Mucus (Auto) Urine Ascorbic Acid Stool Occult Blood NEGATIVE Impressions: Chest X-Ray 09/04/17 12:53 IMPRESSION: No acute infiltrates Abdomen/Pelvis CTA 09/04/17 13:47 IMPRESSION: Minimal patchy airspace disease bilaterally, question pulmonary edema. Gastroesophageal reflux of oral contrast of the cervical esophagus No CTA evidence of thoracic or abdominal aortic dissection or aneurysm. No embolized to the proximal pulmonary arteries. Chest/Abdomen CTA 09/04/17 13:47 IMPRESSION: Minimal patchy airspace disease bilaterally, question pulmonary edema. Gastroesophageal reflux of oral contrast of the cervical esophagus No CTA evidence of thoracic or abdominal aortic dissection or aneurysm. No embolized to the proximal pulmonary arteries. Assessment & Plan - Diagnosis (1) Abdominal pain Qualifiers: Abdominal location: epigastric Qualified Code(s): R10.13 - Epigastric pain Is this a current diagnosis for this admission?: Yes Plan: Patient does give a history of chronic abdominal pain however his pain today appear to be out of his usual chronic pain. CT scan done reveals no acute findings. (2) Hyponatremia Is this a current diagnosis for this admission?: Yes Plan: Patient has significant hyponatremia etiology of which is unclear at this time. He is not on diuretics or any other medications that could account for the hyponatremia. There is no evidence of any adrenal mass and no evidence of any other kind of malignancy on the CT scan. Check urine electrolytes if needed further workup will be done if no correction of the sodium (3) Nausea & vomiting Qualifiers: Vomiting type: unspecified Vomiting Intractability: non-intractable Qualified Code(s): R11.2 - Nausea with vomiting, unspecified Is this a current diagnosis for this admission?: Yes Plan: We will continue symptomatic treatment - Time Time Spent: 30 to 50 Minutes Medications reviewed and adjusted accordingly: Yes Anticipated discharge: Home Within: within 48 hours - Inpatient Certification Based on my medical assessment, after consideration of the patient's comorbidities, presenting symptoms, or acuity I expect that the services needed warrant INPATIENT care.: Yes Medical Necessity: Need For IV Fluids, Need for Pain Control
[2017-09-04] MEDS: MONTELUKAST SODIUM 10 MG TABLET PO SCH (21:36)
[2017-09-04] MEDS: FAMOTIDINE 20 MG TABLET PO SCH (21:36)
[2017-09-04] MEDS: GABAPENTIN 400 MG CAPSULE PO SCH (21:37)
[2017-09-04] MEDS: ZOLPIDEM TARTRATE 5 MG TABLET PO PRN (21:37)
[2017-09-05] MEDS: OXYCODONE-ACETAMINOPHEN 5-325 MG TABLET PO PRN ×3 (03:31→17:29)
[2017-09-05] MEDS: IPRATROPIUM/ALBUTEROL 0.5-2.5 MG/3 ML AMPUL NEB PRN ×2 (03:35→13:15)
[2017-09-05 05:16] LABS: ANION GAP 12 (5-19); BLOOD UREA NITROGEN 12 mg/dL (7-20); CALCIUM 8.3 mg/dL (8.4-10.2); CARBON DIOXIDE 23 mmol/L (22-30); CHLORIDE 90 mmol/L (98-107); GLUCOSE 88 mg/dL (75-110); POTASSIUM 3.5 mmol/L (3.6-5.0); SODIUM 125.2 mmol/L (137-145)
[2017-09-05] MEDS: GABAPENTIN 400 MG CAPSULE PO SCH ×3 (05:36→22:49)
[2017-09-05] MEDS: DOCUSATE SODIUM 100 MG CAPSULE PO SCH (09:36)
[2017-09-05] MEDS: FAMOTIDINE 20 MG TABLET PO SCH ×2 (09:36→22:49)
[2017-09-05] MEDS: ENOXAPARIN SODIUM INJ 40 MG/0.4 ML DISP.SYRIN SUBCUT SCH (09:36)
[2017-09-05] MEDS: NORMAL SALINE 1000 ML 1,000 ML IV PRN ×2 (10:21→17:30)
[2017-09-05 11:49] LABS: OSMOLALITY,URINE 697 mOsm/kg (300-900)
[2017-09-05 12:09] LABS: URINE SODIUM 33 mmol/L (30-90)
--- NOTE | 2017-09-05 16:31 | PDOC PROGRESS REPORT ---
Subjective Progress Note for:: 09/05/17 Subjective:: Admitted with hyponatremia Patient reports feeling anxious otherwise denies any other complaints Reason For Visit: HYPOCHLOREMIC HYPONATREMIA Physical Exam Vital Signs: Temp Pulse Resp BP Pulse Ox 97.9 F 96 18 163/96 H 97 09/05/17 10:57 09/05/17 14:00 09/05/17 13:15 09/05/17 10:57 09/05/17 13:15 Intake & Output 09/04/17 09/05/17 09/06/17 06:59 06:59 06:59 Intake Total 2070 Output Total 500 Balance 1570 Weight 78.8 kg General appearance: PRESENT: no acute distress Head exam: PRESENT: atraumatic, normocephalic Eye exam: PRESENT: conjunctiva pink, PERRLA, scleral icterus, other - Left mild conjunctival hemorrhage Mouth exam: PRESENT: tongue midline Neck exam: ABSENT: carotid bruit, JVD, lymphadenopathy, thyromegaly Respiratory exam: PRESENT: clear to auscultation becky. ABSENT: rales, rhonchi, wheezes Cardiovascular exam: PRESENT: RRR. ABSENT: diastolic murmur, rubs, systolic murmur Pulses: PRESENT: normal dorsalis pedis pul Vascular exam: PRESENT: normal capillary refill GI/Abdominal exam: PRESENT: normal bowel sounds, soft. ABSENT: distended, guarding, mass, organolmegaly, rebound, tenderness Rectal exam: PRESENT: deferred Extremities exam: PRESENT: full ROM. ABSENT: calf tenderness, clubbing, pedal edema Neurological exam: PRESENT: alert, awake, oriented to person, oriented to place , oriented to time, oriented to situation, CN II-XII grossly intact. ABSENT: motor sensory deficit Psychiatric exam: PRESENT: anxious, normal mood. ABSENT: homicidal ideation, suicidal ideation Skin exam: PRESENT: dry, intact, warm. ABSENT: cyanosis, rash Results Laboratory Results: 09/05/17 04:24 09/05/17 09/05/17 04:24 04:24 Sodium 125.2 L Potassium 3.5 L Chloride 90 L Carbon Dioxide 23 Anion Gap 12 BUN 12 Creatinine 0.49 L Est GFR ( Amer) > 60 Est GFR (Non-Af Amer) > 60 Glucose 88 Calcium 8.3 L TSH 0.93 Impressions: Chest X-Ray 09/04/17 12:53 IMPRESSION: No acute infiltrates Abdomen/Pelvis CTA 09/04/17 13:47 IMPRESSION: Minimal patchy airspace disease bilaterally, question pulmonary edema. Gastroesophageal reflux of oral contrast of the cervical esophagus No CTA evidence of thoracic or abdominal aortic dissection or aneurysm. No embolized to the proximal pulmonary arteries. Chest/Abdomen CTA 09/04/17 13:47 IMPRESSION: Minimal patchy airspace disease bilaterally, question pulmonary edema. Gastroesophageal reflux of oral contrast of the cervical esophagus No CTA evidence of thoracic or abdominal aortic dissection or aneurysm. No embolized to the proximal pulmonary arteries. Assessment & Plan - Diagnosis (1) Abdominal pain Qualifiers: Abdominal location: epigastric Qualified Code(s): R10.13 - Epigastric pain Is this a current diagnosis for this admission?: Yes Plan: Improved and appears to be back at baseline. Patient has chronic abdominal pain (2) Hyponatremia Is this a current diagnosis for this admission?: Yes Plan: Sodium level up to 125 today. It is still unclear to me what the precise etiology is. He is not on diuretics although he is on Prozac and is closed in directly cause SIADH. It is possible that this may be a contributing factor. Urine electrolytes ordered unfortunately was not performed (3) Nausea & vomiting Qualifiers: Vomiting type: unspecified Vomiting Intractability: non-intractable Qualified Code(s): R11.2 - Nausea with vomiting, unspecified Is this a current diagnosis for this admission?: Yes - Time Time Spent with patient: 15-24 minutes Medications reviewed and adjusted accordingly: Yes Anticipated discharge: Home Within: within 72 hours - Inpatient Certification Based on my medical assessment, after consideration of the patient's comorbidities, presenting symptoms, or acuity I expect that the services needed warrant INPATIENT care.: Yes Medical Necessity: Need For IV Fluids, Risk of Complication if Not Cared For in Hospital
[2017-09-05] MEDS ORDERED: (PENDING PHARMACY ID) (Diclofenac Sodium [Voltaren] 2 GM) TOP PRN (16:32)
[2017-09-05] MEDS ORDERED: TRAZODONE HCL 50 MG TABLET PO PRN (16:32)
[2017-09-05] MEDS ORDERED: HYDROXYZINE PAMOATE 50 MG CAPSULE PO PRN (16:32)
--- NOTE | 2017-09-05 16:36 | Progress Note ---
Provider Note Provider Note: Complete home medications were just reviewed and patient is on triamterene hydrochlorothiazide 75/50 this is likely the culprit. We will continue to hold these and continue cautious IV fluid replacement with normal saline
[2017-09-05] MEDS: ALPRAZOLAM 0.5 MG TABLET PO PRN (17:30)
[2017-09-05] MEDS: LACTOBACILLUS ACIDOPHILUS 250 MG TAB PO SCH (17:30)
[2017-09-05] MEDS: CALCIUM CARBONATE 500 MG TABLET PO SCH (17:30)
[2017-09-05] MEDS ORDERED: (PENDING PHARMACY ID) (Calcium Carbonate/Vitamin D3 [Calcium 500 + Vit D Caplet] 1 TAB) PO SCH (18:00)
[2017-09-05] MEDS ORDERED: (PENDING PHARMACY ID) (Lactobacillus Acidophilus [Probiotic Acidophilus] 1 TAB) PO SCH (18:00)
[2017-09-05] MEDS: BUDESONIDE/FORMOTEROL 80-4.5 MCG 60 PUFF/6.9 GM MDI IH SCH (18:15)
[2017-09-05] MEDS: CHOLECALCIFEROL (D3) 400 UNIT TABLET PO SCH (18:15)
[2017-09-05] MEDS: ZOLPIDEM TARTRATE 5 MG TABLET PO PRN (22:49)
[2017-09-05] MEDS: MONTELUKAST SODIUM 10 MG TABLET PO SCH (22:49)
[2017-09-06] MEDS: OXYCODONE-ACETAMINOPHEN 5-325 MG TABLET PO PRN ×2 (00:07→21:21)
[2017-09-06] MEDS: ALPRAZOLAM 0.5 MG TABLET PO PRN ×3 (00:07→13:30)
[2017-09-06] MEDS: GABAPENTIN 400 MG CAPSULE PO SCH ×3 (06:22→21:22)
[2017-09-06] MEDS: NORMAL SALINE 1000 ML 1,000 ML IV PRN ×2 (07:49→16:09)
[2017-09-06 07:57] LABS: ANION GAP 9 (5-19); BLOOD UREA NITROGEN 6 mg/dL (7-20); CALCIUM 8.3 mg/dL (8.4-10.2); CARBON DIOXIDE 26 mmol/L (22-30); CHLORIDE 93 mmol/L (98-107); GLUCOSE 109 mg/dL (75-110); POTASSIUM 3.4 mmol/L (3.6-5.0); SODIUM 128.4 mmol/L (137-145)
[2017-09-06] MEDS: FERROUS SULFATE 325 MG TABLET PO SCH (10:04)
[2017-09-06] MEDS: BUDESONIDE/FORMOTEROL 80-4.5 MCG 60 PUFF/6.9 GM MDI IH SCH ×2 (10:04→17:22)
[2017-09-06] MEDS: THIAMINE HCL 100 MG TABLET PO SCH (10:05)
[2017-09-06] MEDS: DOCUSATE SODIUM 100 MG CAPSULE PO SCH (10:05)
[2017-09-06] MEDS: ENOXAPARIN SODIUM INJ 40 MG/0.4 ML DISP.SYRIN SUBCUT SCH (10:05)
[2017-09-06] MEDS: DILTIAZEM HCL 240 MG CAPSULE.CR PO SCH (10:05)
[2017-09-06] MEDS: LACTOBACILLUS ACIDOPHILUS 250 MG TAB PO SCH ×3 (10:05→17:23)
[2017-09-06] MEDS: CALCIUM CARBONATE 500 MG TABLET PO SCH ×2 (10:05→17:24)
[2017-09-06] MEDS: FAMOTIDINE 20 MG TABLET PO SCH ×2 (10:05→21:22)
[2017-09-06] MEDS: FOLIC ACID 1 MG TABLET PO SCH (10:05)
[2017-09-06] MEDS ORDERED: POTASSIUM CHLORIDE 10 MEQ TABLET.SA PO ONE (11:00)
[2017-09-06] MEDS: METOPROLOL SUCCINATE 25 MG TAB.SR.24H PO SCH (11:29)
[2017-09-06] MEDS: CHOLECALCIFEROL (D3) 400 UNIT TABLET PO SCH ×2 (11:30→17:24)
[2017-09-06] MEDS: FLUOXETINE HCL 20 MG CAPSULE PO SCH (11:30)
[2017-09-06] MEDS: IPRATROPIUM/ALBUTEROL 0.5-2.5 MG/3 ML AMPUL NEB PRN (14:22)
--- NOTE | 2017-09-06 17:25 | PDOC PROGRESS REPORT ---
Subjective Subjective:: Admitted with hyponatremia Patient feels pretty good today. He was visited by his son in law who is a physician at [facility] [employer] Reason For Visit: HYPOCHLOREMIC HYPONATREMIA Physical Exam Vital Signs: Temp Pulse Resp BP Pulse Ox 98.1 F 74 15 156/89 H 91 L 09/06/17 16:00 09/06/17 16:00 09/06/17 16:00 09/06/17 16:00 09/06/17 16:00 Intake & Output 09/05/17 09/06/17 09/07/17 06:59 06:59 06:59 Intake Total 2070 6306 930 Output Total 500 4450 1700 Balance 1570 1856 -770 Weight 78.8 kg 81.2 kg General appearance: PRESENT: no acute distress, hard of hearing Head exam: PRESENT: atraumatic Eye exam: PRESENT: conjunctival injection - L eye, improved Neck exam: ABSENT: carotid bruit, JVD, lymphadenopathy, thyromegaly Respiratory exam: PRESENT: clear to auscultation becky, symmetrical, unlabored. ABSENT: wheezes Cardiovascular exam: PRESENT: RRR. ABSENT: diastolic murmur, rubs, systolic murmur GI/Abdominal exam: PRESENT: normal bowel sounds, soft. ABSENT: distended, guarding, mass, organolmegaly, rebound, tenderness Rectal exam: PRESENT: deferred Neurological exam: PRESENT: alert, awake, oriented to person, oriented to place , oriented to time Skin exam: PRESENT: dry, intact, warm. ABSENT: cyanosis, rash Results Laboratory Results: 09/06/17 06:38 09/06/17 06:38 Sodium 128.4 L Potassium 3.4 L Chloride 93 L Carbon Dioxide 26 Anion Gap 9 BUN 6 L Creatinine 0.45 L Est GFR ( Amer) > 60 Est GFR (Non-Af Amer) > 60 Glucose 109 Calcium 8.3 L Impressions: Chest X-Ray 09/04/17 12:53 IMPRESSION: No acute infiltrates Abdomen/Pelvis CTA 09/04/17 13:47 IMPRESSION: Minimal patchy airspace disease bilaterally, question pulmonary edema. Gastroesophageal reflux of oral contrast of the cervical esophagus No CTA evidence of thoracic or abdominal aortic dissection or aneurysm. No embolized to the proximal pulmonary arteries. Chest/Abdomen CTA 09/04/17 13:47 IMPRESSION: Minimal patchy airspace disease bilaterally, question pulmonary edema. Gastroesophageal reflux of oral contrast of the cervical esophagus No CTA evidence of thoracic or abdominal aortic dissection or aneurysm. No embolized to the proximal pulmonary arteries. Assessment & Plan - Diagnosis (1) Hyponatremia Is this a current diagnosis for this admission?: Yes Plan: Sodium up to 128 from 117. If it continues to improve, patient can be dc in am (2) Abdominal pain Qualifiers: Abdominal location: epigastric Qualified Code(s): R10.13 - Epigastric pain Is this a current diagnosis for this admission?: Yes Plan: Improved and appears to be back at baseline. Patient has chronic abdominal pain (3) Nausea & vomiting Qualifiers: Vomiting type: unspecified Vomiting Intractability: non-intractable Qualified Code(s): R11.2 - Nausea with vomiting, unspecified Is this a current diagnosis for this admission?: Yes Plan: resolved (4) Hypertension Qualifiers: Hypertension type: essential hypertension Qualified Code(s): I10 - Essential (primary) hypertension Is this a current diagnosis for this admission?: Yes Plan: Since his Maxzide washeld I have started him on Metoprolol. Monitor BP overnight also and adjust as needed. - Time Time Spent with patient: 15-24 minutes Medications reviewed and adjusted accordingly: Yes Anticipated discharge: Home Within: within 24 hours - Inpatient Certification Based on my medical assessment, after consideration of the patient's comorbidities, presenting symptoms, or acuity I expect that the services needed warrant INPATIENT care.: Yes Medical Necessity: Need For IV Fluids
[2017-09-06] MEDS: MONTELUKAST SODIUM 10 MG TABLET PO SCH (21:22)
[2017-09-07] MEDS: NORMAL SALINE 1000 ML 1,000 ML IV PRN (00:47)
[2017-09-07] MEDS: GABAPENTIN 400 MG CAPSULE PO SCH (05:17)
[2017-09-07] MEDS: ALPRAZOLAM 0.5 MG TABLET PO PRN (05:17)
[2017-09-07 05:21] LABS: ANION GAP 8 (5-19); BLOOD UREA NITROGEN 9 mg/dL (7-20); CALCIUM 8.7 mg/dL (8.4-10.2); CARBON DIOXIDE 27 mmol/L (22-30); CHLORIDE 104 mmol/L (98-107); GLUCOSE 86 mg/dL (75-110); POTASSIUM 3.9 mmol/L (3.6-5.0); SODIUM 138.5 mmol/L (137-145)
[2017-09-07] MEDS: ENOXAPARIN SODIUM INJ 40 MG/0.4 ML DISP.SYRIN SUBCUT SCH (08:46)
[2017-09-07] MEDS: BUDESONIDE/FORMOTEROL 80-4.5 MCG 60 PUFF/6.9 GM MDI IH SCH (08:51)
[2017-09-07] MEDS: CALCIUM CARBONATE 500 MG TABLET PO SCH (08:52)
[2017-09-07] MEDS: THIAMINE HCL 100 MG TABLET PO SCH (08:52)
[2017-09-07] MEDS: DILTIAZEM HCL 240 MG CAPSULE.CR PO SCH (08:52)
[2017-09-07] MEDS: DOCUSATE SODIUM 100 MG CAPSULE PO SCH (08:52)
[2017-09-07] MEDS: FOLIC ACID 1 MG TABLET PO SCH (08:53)
[2017-09-07] MEDS: FERROUS SULFATE 325 MG TABLET PO SCH (08:53)
[2017-09-07] MEDS: CHOLECALCIFEROL (D3) 400 UNIT TABLET PO SCH (08:53)
[2017-09-07] MEDS: FAMOTIDINE 20 MG TABLET PO SCH (08:53)
[2017-09-07] MEDS: LACTOBACILLUS ACIDOPHILUS 250 MG TAB PO SCH (08:54)
[2017-09-07 11:03] VITALS: BP 156/89
[2017-09-07] MEDS: FLUOXETINE HCL 20 MG CAPSULE PO SCH (11:37)
[2017-09-07] MEDS: OXYCODONE-ACETAMINOPHEN 5-325 MG TABLET PO PRN (11:37)
[2017-09-07] MEDS: METOPROLOL SUCCINATE 25 MG TAB.SR.24H PO SCH (11:38)
--- NOTE | 2017-09-07 12:27 | PDOC DISCHARGE SUMMARY ---
General - Admit/Disc Date/PCP Admission Date/Primary Care Provider: 09/04/17 15:55 Discharge Date: 09/07/17 - Discharge Diagnosis (1) Abdominal pain Is this a current diagnosis for this admission?: Yes (2) Hyponatremia Is this a current diagnosis for this admission?: Yes (3) Nausea & vomiting Is this a current diagnosis for this admission?: Yes - Additional Information Resuscitation Status: Full Code Discharge Diet: As Tolerated Discharge Activity: Activity As Tolerated Home Medications: Acetaminophen [Pain Relief] 500 mg PO Q6HP PRN 09/05/17 Albuterol Sulfate [Proair HFA Inhalation Aerosol 8.5 gm MDI] 1 puff IH Q6HP PRN 09/05/17 Budesonide/Formoterol Fumarate [Symbicort 80-4.5 Mcg Inhaler] 2 puff IH BID Calcium Carbonate/Vitamin D3 [Calcium 500 + Vit D Caplet] 1 tab PO BID 09/05/17 Diclofenac Sodium [Voltaren] 2 gm TOP QIDP PRN 09/05/17 Diltiazem HCl [Diltiazem ER] 240 mg PO DAILY 09/05/17 Ferrous Sulfate [Feosol 325 mg Tablet] 325 mg PO DAILY 09/05/17 Fluoxetine HCl [Prozac 20 mg Capsule] 60 mg PO DAILY 09/05/17 Folic Acid [Folvite 1 mg Tablet] 1 mg PO DAILY 09/05/17 Gabapentin [Neurontin 400 mg Capsule] 1,200 mg PO Q8 09/05/17 Hydroxyzine Pamoate [Vistaril 50 mg Capsule] 50 mg PO HSP PRN 09/05/17 Lactobacillus Acidophilus [Probiotic Acidophilus] 1 tab PO TID 09/05/17 Melatonin [Melatonin 3 mg Tablet] 9 mg PO QHS 09/05/17 Montelukast Sodium [Singulair 10 mg Tablet] 10 mg PO QHS 09/05/17 Pantoprazole Sodium 20 mg PO BID 09/05/17 Thiamine HCl [Thiamine 100 mg Tablet] 100 mg PO DAILY 09/05/17 Trazodone HCl [Desyrel 50 mg Tablet] 50 mg PO HSP PRN 09/05/17 Triamterene/Hydrochlorothiazid [Triamterene-Hctz 75-50 mg Tab] 1 tab PO DAILY History of Present Illness History of Present Illness: CECE PALMA is a 66 year old male with hypertension, COPD, aspergillosis, gastric ulcers presents via EMS with complaint of nausea, vomiting, abdominal pain. is at the bedside and helps provide the history because the patient does not have his hearing aids in. states that patient began coughing 1 week prior to arrival. She states that it was a productive cough, they were going to be seen by his primary care physician but the cough improved. She states that patient has been experiencing subjective fevers for the last 3 days and began having nausea , vomiting and last night. Both patient and reports that the patient vomited "all night long". Patient had 2 episodes of diarrhea this morning. Patient's abdominal pain is located in epigastric region described as a stabbing pain. Patient admits to abdominal distention as well. He denies any black or bloody stools. Patient denies sick contacts. Patient is on amoxicillin chronically for his aspergillosis per the . He does take iron supplements for anemia. Hospital Course Hospital Course: Mr. Palma is 66 years old male patient from [place] came down to [place] to visit his daughter and son-in-law who is a physician at [employer]. He developed acute onset abdominal pain and nausea and vomiting. Patient found to have severe euvolemic hyponatremia with sodium of 119 which most probably due to the nausea and vomiting. Patient has been treated cautiously with normal saline and he responded well which is evidenced by normalized sodium level of 138. Today on the day of discharge on physical examination I found the patient sitting up in chair he is awake alert and oriented and eager to go home. I will continue all his home medications. Physical Exam Vital Signs: Temp Pulse Resp BP Pulse Ox 98.1 F 65 18 156/89 H 98 09/07/17 11:02 09/07/17 11:02 09/07/17 11:02 09/07/17 11:02 09/07/17 11:02 Intake & Output 09/06/17 09/07/17 09/08/17 06:59 06:59 06:59 Intake Total 6306 5221 Output Total 5290 3950 Balance 1856 1271 Weight 81.2 kg 81.2 kg General appearance: PRESENT: no acute distress, well-developed, well-nourished Head exam: PRESENT: atraumatic, normocephalic Eye exam: PRESENT: conjunctiva pink, EOMI, PERRLA. ABSENT: scleral icterus Neck exam: ABSENT: carotid bruit, JVD, lymphadenopathy, thyromegaly Respiratory exam: PRESENT: clear to auscultation becky. ABSENT: rales, rhonchi, wheezes Cardiovascular exam: PRESENT: RRR. ABSENT: diastolic murmur, rubs, systolic murmur GI/Abdominal exam: PRESENT: normal bowel sounds, soft. ABSENT: distended, guarding, mass, organolmegaly, rebound, tenderness Neurological exam: PRESENT: alert, awake, oriented to person, oriented to place , oriented to time, oriented to situation, CN II-XII grossly intact. ABSENT: motor sensory deficit Psychiatric exam: PRESENT: appropriate affect, normal mood. ABSENT: homicidal ideation, suicidal ideation Results Laboratory Results: 09/07/17 04:15 09/07/17 04:15 Sodium 138.5 Potassium 3.9 Chloride 104 Carbon Dioxide 27 Anion Gap 8 BUN 9 Creatinine 0.58 Est GFR ( Amer) > 60 Est GFR (Non-Af Amer) > 60 Glucose 86 Calcium 8.7 Impressions: Chest X-Ray 09/04/17 12:53 IMPRESSION: No acute infiltrates Abdomen/Pelvis CTA 09/04/17 13:47 IMPRESSION: Minimal patchy airspace disease bilaterally, question pulmonary edema. Gastroesophageal reflux of oral contrast of the cervical esophagus No CTA evidence of thoracic or abdominal aortic dissection or aneurysm. No embolized to the proximal pulmonary arteries. Chest/Abdomen CTA 09/04/17 13:47 IMPRESSION: Minimal patchy airspace disease bilaterally, question pulmonary edema. Gastroesophageal reflux of oral contrast of the cervical esophagus No CTA evidence of thoracic or abdominal aortic dissection or aneurysm. No embolized to the proximal pulmonary arteries. Qualifiers - * PATIENT BEING DISCHARGED WITH ANY OF THE FOLLOWING DIAGNOSIS: No
== END 2017-09-07 12:10 | disposition home or self-care (01) | DRG 641 ==
LOC: ER 10:15 → EH 15:55 → 4N 17:33
PROVIDERS: ADMIT Internal Medicine; ATTEND Internal Medicine
DX: E87.1 Hypo-osmolality and hyponatremia (principal); B44.9 Aspergillosis, unspecified; T50.2X5A Adverse effect of carbonic-anhydrase inhibitors, benzothiadiazides and other diuretics, initial encounter; R41.0 Disorientation, unspecified; I10 Essential (primary) hypertension; H11.32 Conjunctival hemorrhage, left eye; K21.9 Gastro-esophageal reflux disease without esophagitis; K25.9 Gastric ulcer, unspecified as acute or chronic, without hemorrhage or perforation; J44.9 Chronic obstructive pulmonary disease, unspecified; R10.13 Epigastric pain; F32.9 Major depressive disorder, single episode, unspecified; Y92.018 Other place in single-family (private) house as the place of occurrence of the external cause; Z79.51 Long term (current) use of inhaled steroids; Z79.899 Other long term (current) drug therapy
CPT/HCPCS: 36415; 71045; 71275; 74174; 80048; 80053; 81001; 82272; 82550; 82553; 82962; 83605; 83690; 83935; 84300; 84443; 84484; 85025; 87040; 93005; 93010; 94640; 96361; 96374; 96375; 96376; 99285; J1170; J1650; J2765; J3490; J7030; J7040; J7620; S0164